=== PATIENT | female | born 1965 | race Caucasian/White ===

== ENCOUNTER 2017-10-10 13:58 | Emergency (ER) | payer OTHER ==
[~2017-10-10] VITALS: Ht 154.9 cm; Wt 51.7 kg
[~2017-10-10 13:58] MED LIST: AUGMENTIN 875875 MG PO; EZETIMIBE; OXYCODONE; OXYCONTIN30 MG PO; ULTRAM 50MG TAB50 MG PO; VEETIDS 500500 MG PO; XANAX 1 MG TABLE1 MG PO; XANAX1 MG PO; [UNRECOGNIZED DRUG - OTHER]
[2017-10-10 14:34] LABS: ABSOLUTE BASOPHILS 0.1 thou/uL (0.0-0.2); ABSOLUTE LYMPHOCYTES 1.9 thou/uL (0.8-5.3); ABSOLUTE MONOCYTES 1.1 thou/uL (0.0-1.2); ABSOLUTE NEUTROPHILS 9.4 thou/uL (1.6-8.1); BASOPHILS 0.7 %; EOSINOPHILS 0.3 %; HEMATOCRIT 40.1 % (37.0-47.0); HEMOGLOBIN 13.1 gm/dL (12.0-15.0); LYMPHOCYTES 14.9 %; MCH 29.9 pg (26.0-34.0); MCHC 32.7 g/dL (28.0-37.0); MCV 91.3 fL (80.0-100.0); MONOCYTES 8.5 %; MPV 7.1 fl. (7.2-11.1); NUCLEATED RBCS 0 /100WBC; PLATELET COUNT* 283 thou/uL (150-400); POLYS 75.6 %; RBC 4.39 mil/uL (4.20-5.00); RDW-CV 12.5 % (10.5-14.5); WBC 12.5 thou/uL (4.0-11.0)
[2017-10-10 14:40] LABS: CREATININE 0.7 mg/dL (0.6-1.3); POTASSIUM 3.3 mmol/L (3.5-5.1)
[2017-10-10 14:51] LABS: URINE BLOOD NEGATIVE (Negative); URINE CLARITY CLEAR; URINE COLOR YELLOW; URINE GLUCOSE-RANDOM NEGATIVE (Negative); URINE KETONES NEGATIVE (Negative); URINE LEUKOCYTES-REFLEX NEGATIVE (Negative); URINE NITRITE-REFLEX NEGATIVE (Negative); URINE PROTEIN TRACE (Negative); URINE SPECIFIC GRAVITY >= 1.030 (1.005-1.030)
[2017-10-10 14:54] LABS: ICTOTEST (BILI CONFIRMATORY) Negative (Negative); URINE BILIRUBIN 1+ (Negative)
[2017-10-10 15:01] LABS: AMP/METHAMP POSITIVE (Negative); BARBITURATES Negative (Negative); BENZODIAZEPINES POSITIVE (Negative); COCAINE Negative (Negative); METHADONE Negative (Negative); OPIATES Negative (Negative); PCP Negative (Negative); THC Negative (Negative)
[2017-10-10 15:07] LABS: APTT 24.5 Seconds (25.0-31.3); INR 1.1; PROTIME 11.1 Seconds (9.20-11.50)
[2017-10-10 15:55] VITALS: BP 110/72
== END 2017-10-10 15:56 | disposition short-term general hospital (02) ==
LOC: M.ERS 13:58
PROVIDERS: Nurse Practitioner Family
DX: S31.41XA Laceration without foreign body of vagina and vulva, initial encounter (principal); E78.00 Pure hypercholesterolemia, unspecified; M19.90 Unspecified osteoarthritis, unspecified site; F17.210 Nicotine dependence, cigarettes, uncomplicated; Z86.19 Personal history of other infectious and parasitic diseases; Z88.1 Allergy status to other antibiotic agents; Z88.6 Allergy status to analgesic agent; Z88.8 Allergy status to other drugs, medicaments and biological substances; X58.XXXA Exposure to other specified factors, initial encounter; Y93.89 Activity, other specified; Y92.89 Other specified places as the place of occurrence of the external cause; Y99.8 Other external cause status